=== PATIENT | female | born 1995 | race Two or more races ===

== ENCOUNTER 2018-11-13 10:16 | Outpatient (CLI) | payer OTHER | END 2018-11-13 10:29 | disposition home or self-care (01) | LOC: RAD 501 10:16 | DX: Q67.5 Congenital deformity of spine (principal) ==

== ENCOUNTER 2021-10-09 12:24 | Emergency (ER) | payer OTHER ==
[~2021-10-09] VITALS: Ht 160 cm; Wt 38.1 kg
== END 2021-10-09 15:15 | disposition home or self-care (01) ==
LOC: ER 12:24
DX: O26.891 Other specified pregnancy related conditions, first trimester (principal); Z3A.01 Less than 8 weeks gestation of pregnancy; E86.0 Dehydration

== ENCOUNTER 2021-10-21 11:35 | Emergency (ER) | payer OTHER ==
[~2021-10-21] VITALS: Ht 152.4 cm; Wt 36.3 kg
[2021-10-21] MEDS ORDERED: PRENATABS FA T1 EACH PO (11:48)
== END 2021-10-21 17:20 | disposition home or self-care (01) ==
LOC: ER 11:35
DX: O21.0 Mild hyperemesis gravidarum (principal); O26.892 Other specified pregnancy related conditions, second trimester; E86.0 Dehydration; Z3A.15 15 weeks gestation of pregnancy

== ENCOUNTER 2021-11-28 10:50 | Emergency (ER) | payer OTHER ==
[~2021-11-28] VITALS: Ht 152.4 cm; Wt 38.6 kg
[~2021-11-28 10:50] MED LIST: PRENATABS FA T1 EACH PO
[2021-11-28] MEDS ORDERED: ZOFRAN8 MG (10:58)
== END 2021-11-28 14:06 | disposition home or self-care (01) ==
LOC: ER 10:50
DX: O26.851 Spotting complicating pregnancy, first trimester (principal); O26.891 Other specified pregnancy related conditions, first trimester; O36.80X1 Pregnancy with inconclusive fetal viability, fetus 1; Z3A.13 13 weeks gestation of pregnancy

== ENCOUNTER 2022-01-14 12:43 | Outpatient (CLI) | payer OTHER ==
[~2022-01-14 12:43] MED LIST changes: +ZOFRAN8 MG
== END 2022-01-14 14:00 | disposition home or self-care (01) ==
LOC: PRENATAL 12:43
PROVIDERS: ATTEND Obstetrics & Gynecology Maternal & Fetal Medicine
DX: O35.3XX0 Maternal care for (suspected) damage to fetus from viral disease in mother, not applicable or unspecified (principal); O44.00 Complete placenta previa NOS or without hemorrhage, unspecified trimester

== ENCOUNTER 2022-05-30 05:44 | Inpatient (IN) | payer OTHER ==
[~2022-05-30] VITALS: Ht 152.4 cm; Wt 57.6 kg
[2022-05-30] MEDS ORDERED: VALACYCLOVIR500 MG PO (06:56)
== END 2022-06-02 15:37 | disposition home or self-care (01) | DRG 807 ==
LOC: LDR 05:44 → OB/GYN 05-31 16:46
PROVIDERS: ADMIT Obstetrics & Gynecology; ATTEND Obstetrics & Gynecology
PROC: 3E0P7VZ Introduction of Hormone into Female Reproductive, Via Natural or Artificial Opening (ICD-10-PCS; 2022-05-30)
PROC: 4A1HXCZ Monitoring of Products of Conception, Cardiac Rate, External Approach (ICD-10-PCS; 2022-05-30)
PROC: 10E0XZZ Delivery of Products of Conception, External Approach (ICD-10-PCS; principal; 2022-05-31)
PROC: 0W8NXZZ Division of Female Perineum, External Approach (ICD-10-PCS; 2022-05-31)
PROC: 3E033VJ Introduction of Other Hormone into Peripheral Vein, Percutaneous Approach (ICD-10-PCS; 2022-05-31)
DX: O80 Encounter for full-term uncomplicated delivery (principal); Z37.0 Single live birth; Z3A.39 39 weeks gestation of pregnancy; Z20.822 Contact with and (suspected) exposure to COVID-19